=== PATIENT | female | born 1985 | race African-American/Black ===

== ENCOUNTER 2016-11-22 01:09 | Emergency (ER) | payer MEDICAID ==
[~2016-11-22] VITALS: Ht 162.6 cm; Wt 118.0 kg
[2016-11-22 05:03] VITALS: BP 115/74
== END 2016-11-22 05:08 | disposition home or self-care (01) ==
LOC: ER 01:09
DX: R04.2 Hemoptysis (principal); R50.9 Fever, unspecified
CPT/HCPCS: 71010; 99283